=== PATIENT | male | born 1935 | race Caucasian/White ===

== ENCOUNTER → 2018-10-20 | Outpatient (CLI) | payer MEDICARE ==
[~2018-10-20] MED LIST: IOHEXOL 240 MG/ML 50ML VIAL. ONE; IOHEXOL 240 MG/ML 50ML VIAL. PO ONE; IOHEXOL 300 MG/ML 75 ML VIAL. IV ONE
--- NOTE | 2018-10-20 11:25 | RAD ---
CT ABD PELV W/ORAL IV CONTRAST History: Unexplained weight loss Technique: Postcontrast CT imaging was performed of the abdomen and pelvis, multiplanar reconstruction images submitted. Oral contrast was given. One or more of the following individualized dose reduction techniques were utilized for this examination: 1. Automated exposure control 2. Adjustment of the mA and/or kV according to patient size 3. Use of iterative reconstruction technique. Comparison: None Findings: There is a small noncalcified right lower lobe nodule of the lung about 0.6 cm axial image 9 series 2. There is emphysema. There is no pleural fluid. Both kidneys enhance, no hydronephrosis. There is no adrenal nodularity. No focal abnormality is identified of the liver or spleen. There is fullness of the pancreatic head when comparing with relatively small pancreatic body and tail. There is visualization of the pancreatic duct. There is atherosclerotic calcification abdominal aorta, also near the origins of the renal arteries bilaterally, minimally near the celiac artery origin. There is also plaque of the iliac arteries bilaterally. Gallbladder is present without obvious intraluminal abnormality by CT. Bowel is not significantly dilated. There is no free air or free fluid. There is retained stool greatest transverse colon. There is circumferential urinary bladder wall thickening. There is more focal nodule of enhancement along the inferior aspect of the urinary bladder/margin of the prostate about 1 cm in size. There is bone demineralization. There is T12 compression deformity without osseous retropulsion. There is multilevel lumbar degenerative disc disease and interbody calcification. There is multilevel lumbar facet degenerative change, minimal posterior subluxation L5 relative to S1, L3 relative to L4, L2 relative to L3, L1 relative L2. There is some variable lumbar neural foramina compromise greatest on the right at L5-S1 and on the left L1-L2. There is proximal left femoral nail. No significantly enlarged nodes are identified. IMPRESSION: 1. There is fairly diffuse urinary bladder wall thickening, could be due to cystitis although mass not excluded. There is also more nodular focus of enhancement of the inferior urinary bladder wall/adjacent prostate gland, possible small mass. There is no significant lymphadenopathy. 2. There is fullness of the pancreatic head when comparing with the relatively small pancreatic body and tail, also visualization of pancreatic duct. Pancreatic head mass is not excluded for which MRI evaluation is recommended. 3. There is small right lower lobe noncalcified pulmonary nodule. Potentially dedicated chest CT may be beneficial to fully evaluate for nodules if increased risk factors for neoplasm. Regarding the visualized nodule, optional 12 month follow-up is recommended as per revised Fleischner guidelines if increased risk factors for neoplasm, no additional follow-up needed if low risk factors. 4. There is T12 compression deformity, may be older unless there is focal point tenderness. There is bone demineralization. 5. There is diffuse atherosclerotic calcification of the abdominal aorta, also near origins of the renal arteries. Electronically signed by: Tad Healy MD (10/20/2018 11:21 AM) [email or web address]
--- NOTE | 2018-10-20 16:28 | RAD ---
CT HEAD WO CONTRAST History: Memory loss, unexplained weight loss Comparison: None. Technique: Noncontrast CT imaging was performed of the head. However there is residual contrast from CT abdomen pelvis performed earlier. Exposure: One or more of the following individualized dose reduction techniques were utilized for this examination: 1. Automated exposure control 2. Adjustment of the mA and/or kV according to patient size 3. Use of iterative reconstruction technique. Findings: No convincing acute intracranial hemorrhage is identified. There is no midline shift or extra-axial fluid collection. Ventricular size is proportionate to sulcal spaces, mild generalized supratentorial involutional change. There is multifocal moderate to severe low-density of the supratentorial parenchyma bilaterally. 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 Visualized paranasal sinuses and the mastoid air cells are aerated. There is atherosclerotic calcification of the carotid siphons bilaterally. Impression: 1. There is generalized supratentorial atrophy. Multifocal low-density of the supratentorial parenchyma is probably due to chronic microvascular ischemic disease in a patient this age, also old lacunar infarcts as stated. Electronically signed by: Tad Healy MD (10/20/2018 4:25 PM) [email or web address]
== END | disposition home or self-care (01) ==
LOC: CT 08:22
PROVIDERS: ATTEND Family Medicine
DX: H67.2 Otitis media in diseases classified elsewhere, left ear (principal); R63.4 Abnormal weight loss; R41.2 Retrograde amnesia; R35.1 Nocturia; I70.0 Atherosclerosis of aorta; M51.36 Other intervertebral disc degeneration, lumbar region; J43.8 Other emphysema; R91.8 Other nonspecific abnormal finding of lung field; M81.0 Age-related osteoporosis without current pathological fracture; F17.210 Nicotine dependence, cigarettes, uncomplicated
CPT/HCPCS: 70450; 74177; Q9966; Q9967

== ENCOUNTER 2019-03-28 10:19 | Emergency (ER) | payer MEDICARE, MEDICAID ==
--- NOTE | 2019-03-28 10:32 | PHYS DOC ---
Past History Past Medical History: Cancer Past Surgical History: Other Additional Past Surgical Histo: feeding tube Smoking: Cigarettes Drug Use: None Adult General Chief Complaint Chief Complaint: CONTISPATION HPI HPI Patient is a 83-year-old male presents with constipation. He reports his last bowel movement was 2-3 days ago. Reports pain in his rectum, he is unable to pass the stool. Denies any nausea or vomiting. Patient has a feeding tube due to nutrition issues associated with his previous diagnosis of cancer. Denies any new or worsening shortness of breath. Denies any fever. Denies any rectal bleeding.[] Review of Systems Review of Systems Constitutional: Denies fever or chills [] Eyes: Denies change in visual acuity, redness, or eye pain [] HENT: Denies nasal congestion or sore throat [] Respiratory: Denies cough or shortness of breath [] Cardiovascular: No chest pain or palpitations[] GI: Denies abdominal pain, nausea, vomiting, bloody stools or diarrhea, see history of present illness [] : Denies dysuria or hematuria [] Musculoskeletal: Denies back pain or joint pain [] Integument: Denies rash or skin lesions [] Neurologic: Denies headache, focal weakness or sensory changes [] Endocrine: Denies polyuria or polydipsia [] All other systems were reviewed and found to be within normal limits, except as documented in this note. Allergies Allergies Allergies Coded Allergies Type Severity Reaction Last Updated Verified No Known Drug Allergies 10/20/18 No Physical Exam Physical Exam Constitutional: Well developed, well nourished, no acute distress, non-toxic appearance. [] HENT: Normocephalic, atraumatic, bilateral external ears normal, oropharynx moist, no oral exudates, nose normal. [] Eyes: PERRLA, EOMI, conjunctiva normal, no discharge. [] Neck: Normal range of motion, no tenderness, supple, no stridor. [] Cardiovascular:Heart rate regular rhythm, no murmur [] Lungs & Thorax: Bilateral breath sounds clear to auscultation [] Abdomen: Bowel sounds normal, soft, no tenderness, no masses, no pulsatile masses. Rectal exam had soft stool in the vault. No gross bleeding.[] Skin: Warm, dry, no erythema, no rash. [] Back: No tenderness, no CVA tenderness. [] Extremities: No tenderness, no cyanosis, no clubbing, ROM intact, no edema. [] Neurologic: Alert and oriented X 2, normal motor function, normal sensory function, no focal deficits noted. [] Psychologic: Affect normal, judgement normal, mood normal. [] EKG EKG [] Radiology/Procedures Radiology/Procedures [] Course & Med Decision Making Course & Med Decision Making Pertinent Labs and Imaging studies reviewed. (See chart for details) ED course: Patient arrived, was placed in bed, and tolerated exam well. He was given an enema as well as magnesium citrate through his feeding tube with good results. He was discharged in improved condition Maurice decision making: There is no evidence of an obstruction or perforation given his lack of vomiting and his lack of abdominal pain. There was no gross blood in his stool.[] Dragon Disclaimer Dragon Disclaimer This electronic medical record was generated, in whole or in part, using a voice recognition dictation system. Departure Departure: Impression: Primary Impression: Constipation Disposition: HOME, SELF-CARE Condition: IMPROVED Referrals: BLAS SHAIKH MD (PCP) Follow-up in 2 days Patient Instructions: Constipation, Adult, [id number] Additional Instructions: Drink plenty of fluids. Increase fiber in your diet. Follow-up with your regular doctor in 2 days. Return to the ER if worsening pain or any other concerns. Problem Qualifiers Primary Impression: Constipation Constipation type: unspecified constipation type Qualified Codes: K59.00 - Constipation, unspecified LYNNETTE WALLER DO March 28, 2019 10:31
[2019-03-28] MEDS ORDERED: MAGNESIUM CITRATE 296 ML SOLUTION. FT ONE (10:45)
[2019-03-28] MEDS ORDERED: SODIUM PHOSPHATES 19/7GM 133 ML ENEMA. PR ONE (10:45)
[2019-03-28 12:57] VITALS: BP 109/52
== END 2019-03-28 13:03 | disposition home or self-care (01) ==
LOC: ER 10:19
DX: K59.00 Constipation, unspecified (principal); F17.210 Nicotine dependence, cigarettes, uncomplicated
CPT/HCPCS: 99284

== ENCOUNTER → 2021-06-19 | Outpatient (CLI) | payer MEDICARE, MEDICAID ==
--- NOTE | 2021-06-21 11:10 | RAD ---
EXAM: CT NECK WITHOUT IV CONTRAST CT CHEST WITHOUT IV CONTRAST CLINICAL HISTORY: Reason: FOLLOW UP THROAT CANCER LAST YEAR, HAD RADIATION COMPARISON: No prior imaging of the neck is available for comparison. CT abdomen 10/20/2018 TECHNIQUE: Helical CT of the neck was performed without IV contrast. Axial, coronal and sagittal reformatted gladys ges were generated. Helical CT of the chest was performed without IV contrast. Axial, coronal and sagittal reformatted im ages were generated. PQRS compliance statement - One or more of the following individualized dose reduction techniques wer e utilized for this study: 1. Automated exposure control 2. Adjustment of the mA and/or kV according to patient size 3. Use of iterative reconstruction technique FINDINGS: CT neck: This examination is markedly limited given lack of IV contrast. Dense vascular calcifications in the carotid bulbs. Orbits are grossly unremarkable. Within limitatio ns, skull base is grossly unremarkable. The paranasal sinuses and mastoid air cells are unremarkable. Prominent asymmetric soft tissue in the right parapharyngeal region, of uncertain clinical significan ce, not well delineated. Posttreatment change could have this appearance although focal recurrent mas s is not excluded. Thyroid is grossly unremarkable. Multilevel degenerative changes of spine are seen. Severe C2, C3-4, C4-5, C6-7 and moderate C5-6 disc height loss. Trace anterolisthesis of C4 on C5. Multilevel facet degenerative changes are seen. Trac e height loss of the T1 vertebral body, possibly physiologic wedging or indeterminate compression fra cture. CT chest: Right IJ vascular catheter tip terminates within the distal SVC. Heart is not enlarged. Coronary calc ifications and aortic calcifications are seen. No pericardial effusion. No pleural effusion. No pneum othorax. Bandlike opacities right upper lobe, right lower lobe likely scarring/atelectasis on the pos t treatment change could have this appearance. Emphysematous changes are seen. Evaluation for mediastinal and hilar lymphadenopathy limited on this noncontrast examination. Within these constraints, no mediastinal or hilar lymphadenopathy. No axillary lymphadenopathy. Dense aortic calcifications are seen in the abdomen. Moderate colonic stool content. Gastrostomy tube is partially profiled. Moderate height loss of T12, stable to 10/20/2018 IMPRESSION: 1. Examination is markedly limited given lack of IV contrast. 2. Asymmetric soft tissue prominence in the right neck may represent local recurrence or posttreatme nt change, however further evaluation with contrast-enhanced CT if possible or PET scan may provide a dditional details if clinically indicated. 3. Right upper lobe and lower lobe bandlike opacities may represent posttreatment change. Given lack of priors, focal recurrence is not excluded. If clinically indicated, PET scan would provide additio nal details as well. 4. Age-indeterminate height loss of T1, possibly compression fracture or physiologic wedging. 5. Old T12 compression fracture is grossly stable. Electronically signed by: Hilario Whitt MD (06/21/2021 11:07 AM) [email or web address]
== END ==
LOC: CT 10:53
PROVIDERS: ATTEND Family Medicine
DX: R47.02 Dysphasia (principal); R63.4 Abnormal weight loss
CPT/HCPCS: 70490; 71250

== ENCOUNTER → 2021-08-16 | Emergency (ER) | payer MEDICARE, MEDICAID ==
[~2021-08-16] VITALS: Ht 167.6 cm; Wt 44.2 kg
[2021-08-16 20:42] VITALS: BP 96/54
--- NOTE | 2021-08-16 20:59 | PHYS DOC ---
Past History Past Medical History: Cancer (BONNY REDMOND APRN) Past Surgical History: Other Additional Past Surgical Histo: feeding tube (BONNY REDMOND APRN) Smoking: Cigarettes Alcohol Use: None Drug Use: None (BONNY REDMOND APRN) Adult General Chief Complaint Chief Complaint: WEAKNESS/GENERALIZED HPI HPI Patient is a 86-year-old male who presents emergency department via EMS for a possible syncopal episode at a local convenience store. Patient denies any syncopal episodes. Patient states he is 86 years old and walked from home to the [email or web address] store, patient states he sat down to rest for a few moments and somebody thought he was passed out and called 911 without telling him. Patient reports he was forced to come to the emergency department by the paramedics. Patient denies any physical complaints or physical concerns, patient states he does not want any emergency room care and does not want to be treated in the emergency department for any healthcare problems. Patient states he wishes to go home at this time. Transporting actionscript developer reports patient has been alert and oriented x3 upon their arrival to the convenient store and during transport to the emergency department, reports bedside blood sugar was 130. (BONNY REDMOND APRN) Review of Systems Review of Systems 14 body systems of review of systems have been reviewed. See HPI for pertinent positives and negative responses, otherwise all other systems are negative, nonpertinent or noncontributory. Constitutional: Negative except as outlined in HPI above. Skin: Negative except as outlined in HPI above. Eyes: Negative except as outlined in HPI above. HENT: Negative except as outlined in HPI above. Respiratory: Negative except as outlined in HPI above. Cardiovascular: Negative except as outlined in HPI above. GI: Negative except as outlined in HPI above. : Negative except as outlined in HPI above. Musculoskeletal: Negative except as outlined in HPI above. Integument: Negative except as outlined in HPI above. Neurologic: Negative except as outlined in HPI above. Endocrine: Negative except as outlined in HPI above. Lymphatic: Negative except as outlined in HPI above. Psychiatric: Negative except as outlined in HPI above. (BONNY REDMOND APRN) Allergies Allergies Allergies Coded Allergies Type Severity Reaction Last Updated Verified No Known Drug Allergies 10/20/18 No (BONNY REDMOND APRN) Physical Exam Physical Exam Constitutional: Well developed, well nourished, no acute distress, non-toxic appearance. 86-year-old male in no apparent distress. HENT: Normocephalic, atraumatic. Eyes: Conjunctiva normal, no discharge. Neck: Normal range of motion, no stridor. Cardiovascular: No cyanosis appreciated, distal cap refill less than 2 seconds. Lungs & Thorax: Patient is in no respiratory distress, no audible adventitious lung sounds appreciated. Abdomen: Nontender, no abnormalities noted. Skin: Warm, dry, no erythema, no rash. Back: No tenderness, no deformities. Extremities: No tenderness, no cyanosis, no clubbing, ROM intact, no edema. Neurologic: Alert and oriented X 3, normal motor function, normal sensory function, no focal deficits noted. Patient ambulates with assistance of walking cane, patient ambulated along emergency department hallways without difficulty. Psychologic: Affect normal, judgement normal, mood normal. (BONNY REDMOND APRN) Current Patient Data Vital Signs Vital Signs Date Time Temp Pulse Resp B/P (MAP) Pulse Ox O2 Delivery O2 Flow Rate FiO2 08/16/21 20:42 71 16 96/54 (68) 100 Room Air 08/16/21 20:25 97.6 (BONNY REDMOND APRN) EKG EKG [] (BONNY REDMOND APRN) Radiology/Procedures Radiology/Procedures [] (BONNY REDMOND APRN) Heart Score C/O Chest Pain: No Risk Factors: Risk Factors: DM, Current or recent (<one month) smoker, HTN, HLP, family history of CAD, obesity. Risk Scores: Risk Factors: DM, Current or recent (<one month) smoker, HTN, HLP, family history of CAD, obesity. (BONNY REDMOND APRN) Course & Med Decision Making Course & Med Decision Making Pertinent Labs and Imaging studies reviewed. (See chart for details) 86-year-old male, vital signs reviewed, presents emergency department concerning a possible syncopal episode at a local convenience store. Patient denies this happening, states he wishes to go home. Patient is alert and oriented x3, vital signs are stable and within normal limits. The patient did ambulate without difficulty using his walking cane to complete physical examination. Patient states he does not wish to have any further treatment or evaluation in the emergency department as he does not have any chest pain, shortness of breath, dizziness, or physical concerns or physical complaints at this time. Patient states he wishes to go home. The patient and I made a joint decision to discharge to home without further treatment or evaluation. The patient does not drive, patient states his does not drive, will provide transport by local cab to home. Discussed with the patient all findings and diagnostic testing as well as the need to follow-up with their primary care provider for further evaluation and treatment or return to the ED if any new or worsening symptoms. Strict return precautions were also discussed at length, the patient voiced understanding and agreement with the discharge planning. The patient was nontoxic in appearance, in no apparent distress, and hemodynamically stable at the time of disposition. (BONNY REDMOND APRN) Course & Med Decision Making Did not see or evaluate patient. Did not discuss patient with BLACK MILL OPERATOR. Agree with BLACK MILL OPERATOR work-up and disposition per note. (LUIS SOLMOON MD) Dragon Disclaimer Dragon Disclaimer This electronic medical record was generated, in whole or in part, using a voice recognition dictation system. (BONNY REDMOND APRN) Departure Departure: Impression: Primary Impression: No problem, feared complaint unfounded Disposition: 01 HOME / SELF CARE / HOMELESS Condition: GOOD Referrals: BLAS SHAIKH MD (PCP) Additional Instructions: You were seen in the emergency department after a possible passing out spell at the [employer] store. You have denied this. You are transporting actionscript developer stated you have remained alert and oriented without obvious physical decline during his initial evaluation and transport to the emergency department. Your vital signs are within normal limits, you have elected to go home and refused any further care or evaluation emergency department. Please return to the emergency department for chest pain, shortness of breath, or other concerns. Thank you for visiting our Emergency Department. It was a pleasure taking care of you today in the emergency department and we appreciate you trusting us with your care. If any additional problems come up don't hesitate to return to visit us. Please follow up with your primary care provider so they can plan additional care if needed and know about the problem that you had. If symptoms worsen come back to the Emergency Department. Any concerning symptoms that start such as chest pain, shortness of air, weakness or numbness on one side of the body, running high fevers or any other concerning symptoms return to the ER. BONNY REDMOND APRN Aug 16, 2021 20:59 LUIS SOLOMON MD Aug 16, 2021 21:07
== END | disposition home or self-care (01) ==
LOC: ER 20:20
DX: Z71.1 Person with feared health complaint in whom no diagnosis is made (principal); F17.210 Nicotine dependence, cigarettes, uncomplicated
CPT/HCPCS: 99283

== ENCOUNTER 2021-08-25 11:48 | Inpatient (IN) | payer MEDICARE, MEDICAID ==
[~2021-08-25] VITALS: Ht 177.8 cm; Wt 41.6 kg
--- NOTE | 2021-08-25 11:52 | PHYS DOC ---
Past History Past Medical History: Cancer Past Surgical History: Other Additional Past Surgical Histo: feeding tube Smoking: Cigarettes Alcohol Use: None Drug Use: None General Adult HPI: HPI: Patient is a 86-year-old male presenting via EMS from home. Patient has had decreased appetite with the past 2-week also complaining of throat pain and difficulty swallowing secretions. Patient has a history significant for throat and lung cancer. Is concerned just her cancer is back. Called his primary care provider who told him to come to the emergency department for evaluation. Denies any fevers. Has baseline chronic cough. Has not had his Covid vaccines. Review of Systems: Review of Systems: All other systems within normal limits except for as noted in the HPI Allergies: Allergies: Allergies Coded Allergies Type Severity Reaction Last Updated Verified No Known Drug Allergies 10/20/18 No Physical Exam: PE: Constitutional: Well developed, well nourished, no acute distress, non-toxic appearance. Frail [] HENT: Normocephalic, atraumatic, bilateral external ears normal, nose normal. [] Eyes: PERRLA, conjunctiva normal, no discharge. [] Neck: No rigidity, supple, no stridor. [] Cardiovascular: Regular rate and rhythm, brisk cap refill [] Lungs & Thorax: Non labored symmetric respirations, no tachypnea or respiratory distress [] Abdomen: Soft, nondistended. Skin: Warm, dry, no erythema, no rash. [] Back: Unremarkable Extremities: No deformities, range of motion grossly intact, no lower extremity edema [] Neurologic: Alert and oriented X 3, no focal deficits noted. [] Psychologic: Affect normal, judgement normal, mood normal. [] EKG: EKG: Sinus rhythm, heart rates 84 bpm, normal axis, no ST elevation or depression. [] Radiology/Procedures: Radiology/Procedures: [address] [address] IMAGING REPORT Signed PATIENT: LEE CONNOLLY ACCOUNT: [id number] : 1935 LOCATION: ER AGE: 86 SEX: M EXAM STATUS: REG ER ORD. PHYSICIAN: REYNALDO STACK MD REASON: malignancy, sore throat - omni 300 60ml given PROCEDURE: CT NECK CHEST ABD PELVIS W/ CT chest neck, abdomen and pelvis with contrast: History: Malignancy and sore throat Axial helical images of the neck, chest abdomen and pelvis were obtained after the administration of 60 cc IV Omni 300 contrast. Delayed images were obtained from above the kidneys to the urinary bladder. Comparison: none CT neck with contrast The epiglottis is small and thin. There is enhancement of the piriform sinus. The fat soft tissue planes of the neck are preserved. There is no mass or lymphadenopathy. There is no prevertebral soft tissue swelling. The thyroid appears normal. There is significant atherosclerotic disease of the carotid arteries with greater than 50 percent stenosis of the origins of the internal carotid arteries bilaterally. There is marked degenerative changes of the C-spine with multilevel central and neuroforaminal stenosis. Impression: 1. Diffuse enhancement of the piriform sinus. This could be infectious or inflammatory or post radiation changes. There is no focal mass or abscess identified. 2. Atherosclerotic disease with persistent stenosis origin internal carotid arteries bilaterally. End impression CT OF THE CHEST WITH IV CONTRAST: There is a tiny right apical pneumothorax. There is diffuse emphysematous changes in lungs. There is patchy opacities in the periphery of the upper right lung and a few patchy linear opacities in the left lower lobe. There is mild pneumomediastinum. There is no mediastinal lymphadenopathy or hematoma. Lymphadenopathy: no Thoracic aorta: normal There are a few old vertebral compression fractures seen previously. Impression: 1. Patchy opacities in the lungs right worse than left. These are nonspecific and could be pneumonitis or scar or treatment changes. These are unchanged. A [address] chest without contrast or PET/CT would be helpful. 2. Mild pneumomediastinum and tiny right apical pneumothorax. End Impression CT OF THE ABDOMEN AND PELVIS WITH IV CONTRAST: There is calcination the jones of the aorta and great vessels without aneurysm. There is a percutaneous feeding tube. There is beam Field artifact due to hardware from prior repair of a left hip fracture. Liver: Unremarkable Spleen: Unremarkable Pancreas: Unremarkable Adrenal Glands: Unremarkable Kidneys: Unremarkable Evaluation of stomach and bowel is limited without oral contrast. Lymphadenopathy: no. Free fluid: no. Free air: no. The bladder appears normal. Impression: No acute findings. End impression PQRS Compliance Statement: One or more of the following individualized dose reduction techniques were utilized for this examination: 1. Automated exposure control 2. Adjustment of the mA and/or kV according to patient size 3. Use of iterative reconstruction technique Electronically signed by: Lee Mckay III, MD (08/25/2021 3:23 PM) [facility] DICTATED AND SIGNED BY: LEE MCKAY III, MD DATE: 08/25/21 1459 CC: REYNALDO STACK MD; BLAS SHAIKH MD ~MTH0 0 [] Heart Score: C/O Chest Pain: No HEART Score for Chest Pain: HEART Score for Chest Pain Response (Comments) Value History Slighlty/Non-Suspicious 0 ECG Nonspecific Repolarizatio 1 Age > 65 2 Risk Factors 1 or 2 Risk Factors 1 Troponin >3 x Normal Limit 2 Total 6 Risk Factors: Risk Factors: DM, Current or recent (<one month) smoker, HTN, HLP, family history of CAD, obesity. Risk Scores: Score 0 - 3: 2.5% MACE over next 6 weeks - Discharge Home Score 4 - 6: 20.3% MACE over next 6 weeks - Admit for Clinical Observation Score 7 - 10: 72.7% MACE over next 6 weeks - Early Invasive Strategies Course & Med Decision Making: Course & Med Decision Making Pertinent Labs and Imaging studies reviewed. (See chart for details) [] Dragon Disclaimer: Dragon Disclaimer: This electronic medical record was generated, in whole or in part, using a voice recognition dictation system. Departure Departure: Impression: Primary Impression: Decreased appetite Additional Impressions: Dehydration Elevated troponin Disposition: ADMITTED INPATIENT Admitting Physician: Blas Shaikh Condition: STABLE Referrals: BLAS SHAIKH MD (PCP) REYNALDO STACK MD Aug 25, 2021 11:52
[2021-08-25 12:57] LABS: CALCIUM 10.8 mg/dL (8.5-10.1); CREATININE 1.2 mg/dL (0.7-1.3); GFR 57.7; POTASSIUM 4.2 mmol/L (3.5-5.1)
[2021-08-25 13:12] LABS: ALBUMIN 3.1 g/dL (3.4-5.0); ALBUMIN/GLOBULIN RATIO 0.9 (1.0-1.7); PHOSPHORUS 3.5 mg/dL (2.6-4.7); TOTAL BILIRUBIN 0.9 mg/dL (0.2-1.0); TOTAL PROTEIN 6.7 g/dL (6.4-8.2)
[2021-08-25] MEDS ORDERED: IV NORMAL SALINE 1,000ML 1,000 ML IV ONE (13:15)
[2021-08-25] MEDS ORDERED: IOHEXOL 300 MG/ML 75 ML VIAL. IV ONE ×2 (13:30→13:45)
[2021-08-25 13:39] LABS: BASO % 0 % (0-3); EOS % 0 % (0-3); HEMATOCRIT 40.4 % (39.0-53.0); HEMOGLOBIN 13.4 g/dL (13.0-17.5); LYMPH # 0.3 x10^3/uL (1.0-4.8); LYMPH % 5 % (24-48); MEAN CORPUSCULAR HEMOGLOBIN 32 pg (25-35); MEAN CORPUSCULAR HGB CONC 33 g/dL (31-37); MEAN CORPUSCULAR VOLUME 97 fL (79-100); MONO # 0.5 x10^3/uL (0.0-1.1); MONO % 7 % (0-9); NEUT # 5.8 x10^3uL (1.8-7.7); NEUT % 88 % (31-73); PLATELET COUNT 341 x10^3/uL (140-400); RED BLOOD COUNT 4.18 x10^6/uL (4.30-5.70); RED CELL DISTRIBUTION WIDTH 14.9 % (11.5-14.5); WHITE BLOOD COUNT 6.6 x10^3/uL (4.0-11.0)
[2021-08-25] MEDS ORDERED: CONTRAST GIVEN. MC PRN (13:45)
--- NOTE | 2021-08-25 15:25 | RAD ---
CT chest neck, abdomen and pelvis with contrast: History: Malignancy and sore throat Axial helical images of the neck, chest abdomen and pelvis were obtained after the administration of 60 cc IV Omni 300 contrast. Delayed images were obtained from above the kidneys to the urinary bladde r. Comparison: none CT neck with contrast The epiglottis is small and thin. There is enhancement of the piriform sinus. The fat soft tissue mandy amy of the neck are preserved. There is no mass or lymphadenopathy. There is no prevertebral soft tis shital swelling. The thyroid appears normal. There is significant atherosclerotic disease of the carotid arteries with greater than 50 percent stenosis of the origins of the internal carotid arteries bilat erally. There is marked degenerative changes of the C-spine with multilevel central and neuroforaminal stenos is. Impression: 1. Diffuse enhancement of the piriform sinus. This could be infectious or inflammatory or post radiat ion changes. There is no focal mass or abscess identified. 2. Atherosclerotic disease with persistent stenosis origin internal carotid arteries bilaterally. End impression CT OF THE CHEST WITH IV CONTRAST: There is a tiny right apical pneumothorax. There is diffuse emphysematous changes in lungs. There is patchy opacities in the periphery of the upper right lung and a few patchy linear opacities in the le ft lower lobe. There is mild pneumomediastinum. There is no mediastinal lymphadenopathy or hematoma. Lymphadenopathy: no Thoracic aorta: normal There are a few old vertebral compression fractures seen previously. Impression: 1. Patchy opacities in the lungs right worse than left. These are nonspecific and could be pneumoniti s or scar or treatment changes. These are unchanged. A [address] chest without contrast or PET/CT would be helpful. 2. Mild pneumomediastinum and tiny right apical pneumothorax. End Impression CT OF THE ABDOMEN AND PELVIS WITH IV CONTRAST: There is calcination the jones of the aorta and great vessels without aneurysm. There is a percutaneous feeding tube. There is beam Field artifact due to hardware from prior repair of a left hip fracture. Liver: Unremarkable Spleen: Unremarkable Pancreas: Unremarkable Adrenal Glands: Unremarkable Kidneys: Unremarkable Evaluation of stomach and bowel is limited without oral contrast. Lymphadenopathy: no. Free fluid: no. Free air: no. The bladder appears normal. Impression: No acute findings. End impression PQRS Compliance Statement: One or more of the following individualized dose reduction techniques were utilized for this examinat ion: 1. Automated exposure control 2. Adjustment of the mA and/or kV according to patient size 3. Use of iterative reconstruction technique Electronically signed by: Pb Andrea III, MD (08/25/2021 3:23 PM) [facility]
[2021-08-25] MEDS ORDERED: MORPHINE SULFATE 2 MG/ML DISP.SYRIN. IVP PRN (15:45)
[2021-08-25] MEDS ORDERED: ACETAMINOPHEN 325 MG TABLET PO PRN (15:45)
[2021-08-25] MEDS ORDERED: ONDANSETRON PF 4 MG/2 ML VIAL. IVP PRN (15:45)
[2021-08-25] MEDS ORDERED: IV NORMAL SALINE 1,000ML 1,000 ML IV SCH (15:45)
[2021-08-25 17:40] VITALS: BP 143/90
--- NOTE | 2021-08-25 17:46 | NUR ---
PT ARRIVED TO ROOM 125 VIA EMS. PT AMBULATED TO BED THEN BATHROOM. PT HAS A CANE IN HIS ROOM, BUT DID NOT USE. PT HAS AN OLD PEG TUBE, AND A PORT THAT HE DOES NOT KNOW THE LAST ACCESS DATE. THIS RN CONTACTED PT . PT STATES PT JUST OCCASIONALLY TAKES AN "ALL DAY PAIN RELIEF", AND COULD NOT TELL THIS RN ANY FURTHER MEDICAL HISTORY. PT IS VERY HARD OF HEARING AND A POOR HISTORIAN. PT LIVES AT HOME WITH HIS AND HAS REFUSED ALL VACCINES. PT STATES HE HAS BEEN EATING POORLY AND LOSING WEIGHT FOR ABOUT A YEAR NOW.
--- NOTE | 2021-08-25 18:01 | NUR ---
DR. SHAIKH CONTACTED. PROCALIMINE ORDERED AND BEDSIDE SWALLOW SCREEN ORDERED.
[2021-08-25] MEDS: AA 4.25 %/CALCIUM/LYTES/D5W 1,000 ML IV SCH (18:16)
--- NOTE | 2021-08-25 18:33 | NUR ---
PT PASSED BESIDE SWALLOW EVAL. PT TO START ON REGULAR DIET.
--- NOTE | 2021-08-25 18:42 | EKG ---
[address] [address] Test Date: 2021-08-25 Test Time: 11:52:54 Pat Name: LEE CONNOLLY Department: Room: 125 A Gender: M Drophammer Operator: EDUARDO : 1935 Requested By: REYNALDO STACK Order Number: [id number] Reading MD: Efren Melendez MD Measurements Intervals [place] Rate: 74 P: 90 MS: 226 QRS: 60 QRSD: 72 T: 83 QT: 384 QTc: 431 Interpretive Statements SINUS RHYTHM 1ST DEGREE AVB Electronically Signed On 08-28-2021 11:16:51 CDT by Efren Melendez MD
[2021-08-25 19:00] VITALS: BP 122/78
[2021-08-25] MEDS: guaiFENesin 300 MG/15 ML LIQUID PO SCH (19:49)
[2021-08-25] MEDS ORDERED: TOTAL PARENTERAL NUTRITION 656.4987 ML, AMINO ACID 15% 80 GM, DEXTROSE 50% WATER 500 ML... IV SCH (22:00)
--- NOTE | 2021-08-26 01:09 | NUR ---
Confused, oriented to self only; from approx 1900 to 2300, pt had multiple episodes of incontinence, attempting to get out of bed, urinating on floor; skin is very fragile with multiple bony prominences, BMI of 12; #16 fr scott cath placed for accurate I&O, preservation of skin integrity, and pt safety, tolerated procedure well; approx 200ml cloudy yellow urine immediate return; also pulled out IV cath, new site established via #20g to left AC; expresses hunger often, no problems noted with PO intake, has had snacks x3 thus far this shift; will consult Case Management to address concerns; siderails up x4, bed alarm x2 on.
[2021-08-26 01:41] VITALS: BP 158/82
[2021-08-26] MEDS: AA 4.25 %/CALCIUM/LYTES/D5W 1,000 ML IV SCH ×2 (05:11→10:04)
[2021-08-26 05:46] VITALS: BP 131/77
[2021-08-26 07:45] LABS: BASO % 0 % (0-3); EOS # 0.1 x10^3/uL (0.0-0.7); EOS % 1 % (0-3); HEMATOCRIT 36.6 % (39.0-53.0); HEMOGLOBIN 12.3 g/dL (13.0-17.5); LYMPH # 0.4 x10^3/uL (1.0-4.8); LYMPH % 4 % (24-48); MEAN CORPUSCULAR HEMOGLOBIN 33 pg (25-35); MEAN CORPUSCULAR HGB CONC 34 g/dL (31-37); MEAN CORPUSCULAR VOLUME 97 fL (79-100); MONO % 11 % (0-9); NEUT # 7.5 x10^3uL (1.8-7.7); NEUT % 84 % (31-73); PLATELET COUNT 276 x10^3/uL (140-400); RED BLOOD COUNT 3.78 x10^6/uL (4.30-5.70); RED CELL DISTRIBUTION WIDTH 14.8 % (11.5-14.5); WHITE BLOOD COUNT 8.9 x10^3/uL (4.0-11.0)
[2021-08-26 07:56] LABS: CALCIUM 9.5 mg/dL (8.5-10.1); GFR 71.2; POTASSIUM 3.6 mmol/L (3.5-5.1)
[2021-08-26] MEDS: guaiFENesin 300 MG/15 ML LIQUID PO SCH ×3 (09:00→23:00)
[2021-08-26 12:24] VITALS: BP 124/65
--- NOTE | 2021-08-26 13:32 | HP ---
DATE OF SERVICE: 08/26/2021 ADMIT DATE: 08/25/2021 HISTORY OF PRESENT ILLNESS: An 86-year-old gentleman admitted, not able to eat or drink for the last couple of weeks, history of throat and lung cancer. The patient unable to take food down. The patient has not been hydrated or nutritional supplementation for at least 2 weeks. The patient with poor social situation, does have a feeding tube, which is dysfunctional for several months now. Family not able to take care of him there. The patient was admitted for further evaluation of his severe malnutrition and dehydration. The patient is markedly emaciated. PAST MEDICAL HISTORY: Throat cancer, lung cancer. He has received chemotherapy for such. He has had a PEG tube placement. He has severe muscle atrophy. Orthopedic left hip surgery and cancer as noted. FAMILY HISTORY: Noncontributory. ALLERGIES: No known allergies. SOCIAL HISTORY: The patient had a previous history of smoking about 30-40 pack year history of smoking, alcohol use, but none here in the last several years. The patient apparently takes no home medication and the patient is a full code. REVIEW OF SYSTEMS: The patient just generally very emaciated gentleman, looks like he came out of a concentration camp, he is so emaciated. He really does not complain of much, except it is trouble for him to swallow. He denies chest pain, shortness of breath, abdominal pain per se, but it basically is just skin and bones. PHYSICAL EXAMINATION: VITAL SIGNS: The patient's blood pressure 130/70, respiratory 20, pulse 70, afebrile. He is at 93 on room air. HEENT: The patient is a very unkempt gentleman. Eyes are PERRLA with sunken in. Mouth and Throat: Extremely poor dentition, missing teeth. NECK: Supple without JVD, carotid bruits, or thyromegaly. LUNGS: Diminished. CARDIOVASCULAR: Regular sinus rhythm. Chest wall shows the ribcage with barely a thin layer of skin over it. Heart you can see pretty much beating through the skin itself, it is so thin. ABDOMEN: Soft. There was a PEG tube, which was infiltrated. It looked like fungus growing within the tube itself. We would water flush it because it may contaminate him even more. Otherwise, there were no masses in the abdomen. EXTREMITIES: No clubbing or cyanosis. There is marked musculoskeletal atrophy. Most of the muscle tissue has been wasted away on this gentleman. NEUROLOGIC: He is alert. He is pleasant, difficulty talking because he is so weak. LABORATORY DATA: His labs do not really appreciate the seriousness of this individual. Blood pressure as indicated above. Sodium and potassium 142 and 4.2, BUN and creatinine 28 and 1.2, glucose 140, calcium 10.8, magnesium 2. Liver enzymes normal. BNP elevated at 2400. Elevated troponin slightly, but no chest pain. Albumin 3.1. Hemoglobin and hematocrit 12 and 36. IMPRESSION AND PLAN: Marked emaciation, severe malnutrition, throat cancer, lung cancer, dehydration, poor dentition, possible right apical pneumothorax, severe emphysema. We will place him on either TPN or electrolyte replacement, could be obtained and possible situation set up for PEG tube placement and replacement. CHARITY/VINCE/JAIRON DR: CHARITY/luis TID: [id number]
[2021-08-26 16:25] VITALS: BP 126/71
[2021-08-26 20:34] VITALS: BP 165/80
[2021-08-26 23:00] VITALS: BP 135/68
[2021-08-26] MEDS: FAT EMULSIONS 20% 250 ML IV SCH (23:00)
[2021-08-27] MEDS: AA 4.25 %/CALCIUM/LYTES/D5W 1,000 ML IV SCH ×2 (06:07→19:54)
[2021-08-27 06:08] VITALS: BP 90/63
[2021-08-27] MEDS: guaiFENesin 300 MG/15 ML LIQUID PO SCH ×2 (09:43→20:14)
[2021-08-27 10:01] VITALS: BP 139/73
--- NOTE | 2021-08-27 14:45 | PN ---
SUBJECTIVE: An 86-year-old gentleman came in, had not been eating or drinking for the last 2 weeks. He has had throat cancer and lung cancer. He has received chemotherapy. His PEG tube that he had in place was clogged, unable to give nutrition through that, he is unable to eat. He chews things and then they come up through his throat because of his inability to swallow, so he needs a PEG tube, which we are awaiting for surgical consult on Saturday to place that or GI consult on Saturday to place that. Otherwise, he is resting fairly comfortably. OBJECTIVE: VITAL SIGNS: Blood pressure anywhere from 90/63-140/70, respirations 16, pulse 70, afebrile, 97% on room air. GENERAL: The patient is a cachectic-appearing male, in no apparent distress. Poor dentition. LUNGS: Diminished throughout. CARDIOVASCULAR: Regular sinus rhythm. ABDOMEN: Soft, scaphoid. EXTREMITIES: Without clubbing, cyanosis or edema. The patient has marked atrophy to the extremities. IMPRESSION: Severe protein malnutrition, dysphagia secondary to throat cancer, anemia of chronic disease, history of throat and lung cancer. TRACI DR: Krishan TID: [id number]
[2021-08-27 15:17] VITALS: BP 138/60
[2021-08-27 19:59] VITALS: BP 113/63
[2021-08-27] MEDS: FAT EMULSIONS 20% 250 ML IV SCH (21:37)
--- NOTE | 2021-08-28 04:41 | NUR ---
PT very agitated throughout night, trying to get out of bed to urinate. Explained multiple times that he has a Oliva and its purpose. PT usually not always easily directed. Bed alarm (sitting) placed with use of 3 bed rails. PT NPO at this time. Second IV established for lipid administration.
[2021-08-28 06:37] VITALS: BP 127/61
[2021-08-28] MEDS: guaiFENesin 300 MG/15 ML LIQUID PO SCH (07:44)
[2021-08-28] MEDS: AA 4.25 %/CALCIUM/LYTES/D5W 1,000 ML IV SCH (07:45)
[2021-08-28 11:24] VITALS: BP 142/65
--- NOTE | 2021-08-28 12:23 | NUR ---
VSS. KAUFFMAN. Oriented x1. Oral care provided. PT/OT at bedside this AM. Orders placed [facility] tube [facility]. Report called to JAMILA Arevalo at [place]. EMS transferred patient @ 1215. Pt belongings accidently left in room. , Heather, called and informed of transfer and belongings. Will coordinate transfer of belongings with . Belongings include clothing, cane, baseball hat, and $23 in aviles.
== END 2021-08-28 12:15 | disposition short-term general hospital (02) | DRG 393 ==
LOC: ER 11:48 → 1 SOUTH 16:58
PROVIDERS: ADMIT Family Medicine; ATTEND Family Medicine
DX: K94.23 Gastrostomy malfunction (principal); E43 Unspecified severe protein-calorie malnutrition; Z68.1 Body mass index [BMI] 19.9 or less, adult; R13.10 Dysphagia, unspecified; E86.0 Dehydration; C14.0 Malignant neoplasm of pharynx, unspecified; D63.8 Anemia in other chronic diseases classified elsewhere; J98.2 Interstitial emphysema; Z85.118 Personal history of other malignant neoplasm of bronchus and lung; Z87.891 Personal history of nicotine dependence; Z92.21 Personal history of antineoplastic chemotherapy; Z20.822 Contact with and (suspected) exposure to COVID-19
CPT/HCPCS: 36415; 70491; 71260; 74177; 80048; 80053; 83605; 83735; 83880; 84100; 84478; 84484; 85025; 87426; 93005; 96360; 96361; J3490; Q9967; U0003; 99285-25; J7030